=== PATIENT | female | born 1970 | race Caucasian/White ===

== ENCOUNTER → 2016-11-20 | Outpatient (CLI) | payer OTHER | END | disposition home or self-care (01) | LOC: CFH 15:21 | PROVIDERS: ATTEND Family Medicine | DX: Z12.31 Encounter for screening mammogram for malignant neoplasm of breast (principal) | CPT/HCPCS: G0202 ==

== ENCOUNTER → 2018-02-04 | Outpatient (CLI) | payer OTHER | END | disposition home or self-care (01) | LOC: CFH 15:18 | PROVIDERS: ATTEND Obstetrics & Gynecology Female Pelvic Medicine and Reconstructive Surgery | DX: Z12.31 Encounter for screening mammogram for malignant neoplasm of breast (principal) | CPT/HCPCS: 77063; 77067 ==

== ENCOUNTER 2018-03-21 07:40 | Day surgery (SDC) | payer OTHER ==
[~2018-03-21] VITALS: Ht 152.4 cm; Wt 91.0 kg
[~2018-03-21 07:40] MED LIST: ACET-1600 PO; BUPIVACAINE/PF-EPI 0.25% 1:200K ONE; MULT-658 PO; NEOMY/POLYMYXIN B GU IRR. 1 ML IRRIG ONE; [UNRECOGNIZED DRUG - OTHER] IM; [UNRECOGNIZED DRUG - OTHER] PO; collagen PO
[2018-03-21] MEDS ORDERED: LACTATED RINGERS 1,000 ML IV SCH (08:16)
[2018-03-21 08:17] VITALS: BP 113/77
[2018-03-21] MEDS ORDERED: LIDOCAINE-MPF 1%, 2ML INFIL ONE (08:30)
[2018-03-21 08:48] LABS: HCG UR SG 1.018 (1.003-1.030)
[2018-03-21] MEDS ORDERED: FENTANYL PF 100 MCG/2ML ONE ×2 (09:22→12:32)
[2018-03-21] MEDS ORDERED: MIDAZOLAM 1 MG/ML, 2ML ONE (09:22)
[2018-03-21] MEDS ORDERED: CEFAZOLIN 1,000 MG ONE (10:09)
[2018-03-21] MEDS ORDERED: ROCURONIUM 10MG/ML,5ML ONE (10:09)
[2018-03-21] MEDS ORDERED: KETOROLAC 30 MG/1 ML ONE (10:09)
[2018-03-21] MEDS ORDERED: HYDROmorphone 1 MG/ML, 1ML IV PRN (12:30)
[2018-03-21] MEDS ORDERED: LABETALOL 5MG/ML, 20ML IV PRN (12:30)
[2018-03-21] MEDS ORDERED: MEPERIDINE/PF 25MG/0.5ML IVPush PRN (12:30)
[2018-03-21] MEDS ORDERED: FENTANYL PF 100 MCG/2ML IV PRN (12:30)
[2018-03-21] MEDS ORDERED: MIDAZOLAM 1 MG/ML, 2ML IV PRN (12:30)
[2018-03-21] MEDS ORDERED: ONDANSETRON 2MG/ML, 2ML IVPush PRN (12:30)
[2018-03-21] MEDS ORDERED: OXYcodone 5 MG/5 ML ORAL.SOL UDC PO PRN (12:30)
[2018-03-21] MEDS ORDERED: OXYcodone 5 MG/5 ML ORAL.SOL UDC ONE (12:32)
== END 2018-03-21 15:55 | disposition home or self-care (01) ==
LOC: OUT 07:40
PROVIDERS: ATTEND Obstetrics & Gynecology Female Pelvic Medicine and Reconstructive Surgery
DX: D25.0 Submucous leiomyoma of uterus (principal); N92.1 Excessive and frequent menstruation with irregular cycle; N94.6 Dysmenorrhea, unspecified; N81.89 Other female genital prolapse; N39.3 Stress incontinence (female) (male); N83.8 Other noninflammatory disorders of ovary, fallopian tube and broad ligament; Z98.890 Other specified postprocedural states
CPT/HCPCS: 57265; 57282; 57288; 58552; 81025; 88307; C1771; J0690; J1885; J2250; J3010; J7120